=== PATIENT | male | born 1950 | race Caucasian/White ===

== ENCOUNTER 2016-08-20 10:40 | Observation (INO) | payer OTHER ==
[2016-08-20] VITALS (7 sets, daily range): BP systolic 150–157; BP diastolic 73–89; PULSE 57–80; TEMP 36.3–36.8; O2SAT 94–98; Ht 190.5 cm; Wt 132.4 kg
[~2016-08-20] VITALS: Ht 190.5 cm; Wt 132.4 kg
[~2016-08-20 10:40] MED LIST: ASPI81TA25 PO; ATOR-22 PO; DOXY1TAB6 PO; ESCI10TA17 PO; LORA-741 PO; LOSA50TA54 PO; METO25TA3 PO
[2016-08-20 11:41] LABS: BASO % 0.7 %; BASO ABS # 0.04 K/uL (0-0.2); COMPLETE YES; EOS % 1.4 %; HEMATOCRIT 45.1 % (42-52); IG% 0.2 %; LYMPH % 32.3 %; LYMPH ABS # 1.89 K/uL (1.2-3.4); MEAN CELL VOLUME 84.9 fL (80-100); MEAN CORPUSCULAR HEMOGLOBIN 30.9 pg (25-34); MEAN CORPUSCULAR HGB CONC 36.4 g/dl (32-36); MEAN PLATELET VOLUME 8.7 fL (7.4-10.4); MONO % 6.5 %; NEUT % 58.9 %; PLATELET COUNT 188 K/uL (130-400); RED BLOOD COUNT 5.31 M/uL (4.7-6.1); WHITE BLOOD COUNT 5.85 K/uL (4.8-10.8)
[2016-08-20 11:50] LABS: PROTHROMBIN TIME (PATIENT) 10.5 SECONDS (9.0-12.0)
--- NOTE | 2016-08-20 11:58 | DIAGNOSTIC IMAGING REPORT ---
CHEST ONE VIEW PORTABLE CLINICAL HISTORY: Shortness of breath. Evaluate for pneumonia. COMPARISON STUDY: Chest radiograph January 01, 2013. FINDINGS: No pneumothorax or pleural effusion is present. There is no evidence of pulmonary edema. Mild to moderate cardiomegaly is unchanged. No consolidation is identified. IMPRESSION: 1. No acute cardiopulmonary findings. 2. Stable cardiomegaly. Electronically signed by: Scar Shah M.D. 08/20/2016 11:56 AM Dictated Date/Time: 08/20/2016 11:44 AM
[2016-08-20 12:01] LABS: BUN/CREATININE RATIO 12.9 (10-20); CALCIUM 9.4 mg/dl (8.5-10.1); CREATININE 0.98 mg/dl (0.60-1.40); POTASSIUM 3.7 mmol/L (3.5-5.1)
--- NOTE | 2016-08-20 13:07 | DIAGNOSTIC IMAGING REPORT ---
RIGHT LOWER EXTREMITY VENOUS DOPPLER HISTORY: Short of breath. Right leg pain. COMPARISON STUDY: None. FINDINGS: There is normal compressibility, flow, and augmentation within the right lower extremity deep venous system. There is a 3.5 x 2.0 x 1.3 cm popliteal cyst. IMPRESSION: No DVT within the right lower extremity. Popliteal cyst. Electronically signed by: Federico Brennan M.D. 08/20/2016 1:05 PM Dictated Date/Time: 08/20/2016 1:04 PM
[2016-08-20] MEDS ORDERED: ALUMINUM/MAGNESIUM/SIMETH (MAALOX MAX) 30 ML UDC PO PRN (14:15)
[2016-08-20] MEDS ORDERED: ACETAMINOPHEN 325 MG TAB PO PRN (14:15)
[2016-08-20] MEDS ORDERED: NITROGLYCERIN 0.4 MG SL PER TAB CHARGE SL PRN (14:15)
[2016-08-20] MEDS ORDERED: ONDANSETRON INJ 2 MG/ML 2 ML VIAL IV PRN (14:15)
[2016-08-20] MEDS ORDERED: POLYETHYLENE (MIRALAX) 17 GM PACK PO PRN (14:15)
[2016-08-20] MEDS ORDERED: MAGNESIUM HYDROXIDE SUSP 30 ML UDC PO PRN (14:15)
[2016-08-20] MEDS ORDERED: IV FLUIDS COMPLETED PRN (15:15)
[2016-08-20] MEDS ORDERED: ASPIRIN 324 MG CHEW PO STA (15:48)
--- NOTE | 2016-08-20 16:52 | History and Physical ---
History & Physical Date & Time of Service: Aug 20, 2016 at 14:22 Chief Complaint: Short Of Breath Pain In Left Arm Primary Care Physician: Ralph Rolle M.D. History of Present Illness Source: patient, clinic records, hospital records Patient seen and examined. 65 year old male with PMHx of HTN, chart history of HLD presents to the ED complaining of shortness of breath beginning today. Patient reports when he wokeup this morning he would become SOB with minimal activity. He states he just didn't feel right. He reports that the SOB continued even at rest and he felt like he couldn't get enough air. He states that he had associated left arm pain as well with numbness in his fingers. He states he sometimes develops numbness in his lips as well. He also reports diaphoresis and nausea during the incident. He denies fevers, chills, URI symptoms, chest pain, palpitations, vomiting, diarrhea, dysuria, calf pain and edema. He does not think he was hyperventilating. He states symptoms began resolving spontaneously while in the ED. He reports a family history of Afib. In the ED VS were stable, Glenys, and DDimer were negative, EKG was nonischemic. Past Medical/Surgical History Medical Problems: (1) COPD (chronic obstructive pulmonary disease) Status: Chronic (2) Depression Status: Chronic (3) History of shingles Status: Chronic (4) History of ventricular ectopy Status: Chronic (5) Hyperlipidemia Status: Chronic (6) Hypertension Status: Chronic (7) TRIGGER FINGER Status: Resolved Surgical Problems: (1) H/O arthroscopic knee surgery Status: Chronic (2) H/O cardiac catheterization Permanent Comment: 2000 Status: Chronic (3) H/O esophagogastroduodenoscopy Status: Chronic (4) H/O sinus surgery Status: Chronic (5) H/O umbilical hernia repair Status: Chronic Family History FH: atrial fibrillation MOTHER Stroke MOTHER Social History Smoking Status: Former Smoker Alcohol Use: occasionally Marital Status: Housing status: lives with family Occupational Status: retired Immunizations History of Influenza Vaccine: N/A History of Tetanus Vaccine?: UP TO DATE History of Pneumococcal: No History of Hepatitis B Vaccine: Yes Multi-Drug Resistant Organisms History of MDRO: No Allergies Coded Allergies: Penicillins (Unverified Allergy, Mild, 08/20/16) Latex (Unverified Allergy, Unknown, 08/20/16) Clavulanic Acid (Unverified Adverse Reaction, Unknown, 08/20/16) Home Medications Scheduled Escitalopram (Lexapro), 10 MG PO DAILY Losartan Potassium (Cozaar), 25 MG PO DAILY Review of Systems See above for pertinent positives & negatives. A total of 10 systems reviewed and were otherwise negative. Physical Exam Vital Signs Date Time Temp Pulse Resp B/P Pulse Ox O2 Delivery O2 Flow Rate FiO2 08/20/16 13:51 77 08/20/16 13:45 95 22 137/79 94 Room Air 08/20/16 12:18 87 17 97 Room Air 08/20/16 11:30 Room Air 08/20/16 10:47 94 Room Air 08/20/16 10:47 36.6 104 19 162/87 94 Room Air General Appearance: + pertinent finding (Pleasant WD/WN 65 year old male lying in bed in NAD ) Head: normocephalic, atraumatic Eyes: PERRL, EOMI, sclerae normal ENT: hearing grossly normal, pharynx normal Neck: supple, no JVD, trachea midline Respiratory/Chest: chest non-tender, lungs clear, normal breath sounds, no respiratory distress, no accessory muscle use Cardiovascular: regular rate, rhythm, no edema, no gallop, no JVD, no murmur, normal peripheral pulses Abdomen/GI: normal bowel sounds, non tender, soft Back: normal inspection, no muscle spasm Extremities/Musculoskelatal: no calf tenderness, normal capillary refill, + pedal edema (1+) Neurologic/Psych: alert, oriented x 3, + pertinent finding (no motor or sensory deficits noted on gross exam ) Skin: normal color, warm/dry, no rash Lymphatic: no adenopathy Diagnostics Laboratory Results Results Past 24 Hours Test 08/20/16 11:25 08/20/16 11:35 Range/Units White Blood Count 5.85 4.8-10.8 K/uL Red Blood Count 5.31 4.7-6.1 M/uL Hemoglobin 16.4 14.0-18.0 g/dL Hematocrit 45.1 42-52 % Mean Corpuscular Volume 84.9 80-100 fL Mean Corpuscular Hemoglobin 30.9 25-34 pg Mean Corpuscular Hemoglobin Concent 36.4 32-36 g/dl Platelet Count 188 130-400 K/uL Mean Platelet Volume 8.7 7.4-10.4 fL Neutrophils (%) (Auto) 58.9 % Lymphocytes (%) (Auto) 32.3 % Monocytes (%) (Auto) 6.5 % Eosinophils (%) (Auto) 1.4 % Basophils (%) (Auto) 0.7 % Neutrophils # (Auto) 3.45 1.4-6.5 K/uL Lymphocytes # (Auto) 1.89 1.2-3.4 K/uL Monocytes # (Auto) 0.38 0.11-0.59 K/uL Eosinophils # (Auto) 0.08 0-0.5 K/uL Basophils # (Auto) 0.04 0-0.2 K/uL RDW Standard Deviation 37.9 36.4-46.3 fL RDW Coefficient of Variation 12.4 11.5-14.5 % Immature Granulocyte % (Auto) 0.2 % Immature Granulocyte # (Auto) 0.01 0.00-0.02 K/uL Prothrombin Time 10.5 9.0-12.0 SECONDS Prothromb Time International Ratio 1.0 0.9-1.1 Activated Partial Thromboplast Time 26.0 21.0-31.0 SECONDS Partial Thromboplastin Ratio 1.0 Sodium Level 142 136-145 mmol/L Potassium Level 3.7 3.5-5.1 mmol/L Chloride Level 107 98-107 mmol/L Carbon Dioxide Level 22 21-32 mmol/L Anion Gap 13.0 3-11 mmol/L Blood Urea Nitrogen 13 7-18 mg/dl Creatinine 0.98 0.60-1.40 mg/dl Est Creatinine Clear Calc Drug Dose 104.4 ml/min Estimated GFR () 94.7 Estimated GFR (Non- 81.7 BUN/Creatinine Ratio 12.9 10-20 Random Glucose 96 70-99 mg/dl Calcium Level 9.4 8.5-10.1 mg/dl Bedside D-Dimer 244 0-450 ng/mlFEU Bedside Troponin I 0.000 0-0.045 ng/ml Diagnostic Radiology RLE DOPPLER Per radiologist read: IMPRESSION: No DVT within the right lower extremity. Popliteal cyst. CXR Per radiologist read: EKG NSR 83 BPM, QTc 470, no acute ischemic changes noted Impression Assessment and Plan 65 year old male presents to the ED complaining of SOB, and left arm pain. SHORTNESS OF BREATH, LEFT ARM PAIN -Observation in tele -Glenys negative x 1, Ddimer negative, EKG nonischemic -Had negative stress test in 2013 -Risk factors:HTN, chart history of HLD, 30pack year tobacco history, age, obesity -Serial Glenys and EKGs -Fasting lipid panel in AM -Echo pending to r/o heart wall abnormality -ASA daily -Nitro, prn chest pain -stress test in AM -AHA diet -CBC, PRP, Mg daily -VSS stable, monitor in tele HTN -stable -continue Losartan HLD -per chart -check lipid profile DEPRESSION -continue Lexapro DVT PROPHYLAXIS: Sq lovenox CODE STATUS: FULL CODE DISPO:observation pending further workup Patient seen in collaboration with Dr. Vallejo Attending Note: Patient is a 65 Yr old male with PMH of HTN, HLD presents with an episode of SOB at rest, not feeling well, left arm pain associated with tingling/numbness in his left hand, diaphoresis and nausea this morning. Symptoms have currently resolved and he denies any history of chest pain or any other relevant history. Physical exam: Vitals signs as noted above General; Well built and nourished, No distress HEENT: NC/AT, EOMI, PERRLA CVS: S1, S2, no murmur Resp: Clear to ausculatatiuon, Normal breath sounds Abd: Soft, Non tender, BS present Neuro: no focal deficits Ext: 1+ pedal edema, no cyanosis, clubbing Skin: warm, intact Assessment and plan: SOB associated with left arm pain: Unclear etiology: ? Anxiety related Observe in Tele Trend troponin, Check ECHO Start Aspirin, check lipid panel EKG: no signs of ischemia Stress test in AM CXR: wnl, Negative d-dimer Agree with assessment and plan of Dana Bland PA-C as above VTE Prophylaxis VTE Risk Assessment Done? Y/N: Yes Risk Level: Moderate
--- NOTE | 2016-08-20 17:15 | EMERGENCY ROOM VISIT NOTE ---
History Report prepared by Donnell: Bekah Mittal Under the Supervision of: Dr. Mayco Morrow M.D. First contact with patient: 11:05 Chief Complaint: SHORTNESS OF BREATH Stated Complaint: SHORT OF BREATH PAIN IN LEFT ARM Nursing Triage Summary: Patient c/o SOB since he woke up this morning and pain in bicep in my left arm and my left hand is getting numb. I feel "wrung out, I don't feel very good". Nausea History of Present Illness The patient is a 65 year old male who presents to the Emergency Room with complaints of noticeably increased shortness of breath after getting up from bed this morning. Currently, while resting, he denies being in significant discomfort, but he states that his symptoms seem to be exacerbated with attempts of exertion. At the time of onset, the patient had just woken up and walked down his stairs when he suddenly became short of breath, and developed squeezing pains in his upper left arm, as well as tingling to his left hand for about 10 minutes. During this episode, the patient also felt nauseous and generally "unwell", however, he denies experiencing any tightness, pain or discomfort to his chest or back, and he did not become diaphoretic. Over the past few days, the patient notes that he has had intermittent pains to the back of his right knee, but he has not noticed any swelling or discoloration of the area, and he is been able to move it normally without increased pain. He does state that he normally has swelling to his bilateral ankles, but it is not above baseline today. Patient states that he occasionally feels numbness to his lips, but he did not experience that sensation today. He denies recent fevers, chills, cough, abdominal pain, vomiting, diarrhea or black/bloody stool. Patient does have a history of hypertension, which he is medicated for, but he denies history of IL or CAD. He did have a stress test a few years ago after experiencing chest pain, but he states that the results were insignificant for abnormalities. Source of History: patient Onset: this morning Position: chest Symptom Intensity: No significant discomfort Quality: other (shortness of breath) Timing: other (increased) Modifying Factors (Worsening): exertion Modifying Factors (Relieving): rest Associated Symptoms: + nausea, No abdominal pain, No chest pain, No diaphoresis, No fevers, No vomiting Note: Patient has pain to the back of his right knee. He denies increased swelling to his LE above baseline. Patient had squeezing pains to his left upper arm and numbness to his left hand. Review of Systems See HPI for pertinent positives & negatives. A total of 10 systems reviewed and were otherwise negative. Past Medical & Surgical Medical Problems: (1) COPD (chronic obstructive pulmonary disease) (2) Depression (3) History of shingles (4) History of ventricular ectopy (5) Hyperlipidemia (6) Hypertension (7) Shortness of breath (8) TRIGGER FINGER Surgical Problems: (1) H/O arthroscopic knee surgery (2) H/O cardiac catheterization (3) H/O esophagogastroduodenoscopy (4) H/O sinus surgery (5) H/O umbilical hernia repair Social History Smoking Status: Former Smoker Marital Status: Housing Status: lives with significant other Occupation Status: employed Current/Historical Medications Scheduled Escitalopram (Lexapro), 10 MG PO DAILY Losartan Potassium (Cozaar), 25 MG PO DAILY Allergies Coded Allergies: Penicillins (Unverified Allergy, Mild, 08/20/16) Latex (Unverified Allergy, Unknown, 08/20/16) Clavulanic Acid (Unverified Adverse Reaction, Unknown, 08/20/16) Physical Exam Vital Signs Date Time Temp Pulse Resp B/P Pulse Ox O2 Delivery O2 Flow Rate FiO2 08/20/16 16:20 81 20 118/68 95 Room Air 08/20/16 14:30 94 Room Air 08/20/16 13:51 77 08/20/16 13:45 95 22 137/79 94 Room Air 08/20/16 12:18 87 17 97 Room Air 08/20/16 11:30 Room Air 08/20/16 10:47 94 Room Air 08/20/16 10:47 36.6 104 19 162/87 94 Room Air Physical Exam Constitutional: Vital signs reviewed. Eyes: Pupils are equal round reactive to light. Conjunctiva are noninjected. ENT: Pharynx is clear without erythema or exudate. Mucous membranes are moist. Neck supple without meningeal signs. Respiratory: Clear to auscultation bilaterally. Breath sounds are equal bilaterally. Cardiovascular: Regular rate and rhythm. No rubs or gallops. GI: Soft, nondistended and nontender. Bowel sounds are present. Musculoskeletal: No peripheral edema. No lower extremity tenderness. Integumentary: No cyanosis. Neurological: The patient is awake and alert. No focal deficits. Psychiatric: Normal affect. Medical Decision & Procedures ER Provider Diagnostic Interpretation: X-ray results as stated below per interpretation by me and the radiologist: US results as stated below per my review and radiologist interpretation. CHEST ONE VIEW PORTABLE CLINICAL HISTORY: Shortness of breath. Evaluate for pneumonia. COMPARISON STUDY: Chest radiograph January 01, 2013. FINDINGS: No pneumothorax or pleural effusion is present. There is no evidence of pulmonary edema. Mild to moderate cardiomegaly is unchanged. No consolidation is identified. IMPRESSION: 1. No acute cardiopulmonary findings. 2. Stable cardiomegaly. Electronically signed by: Scar Shah M.D. 08/20/2016 11:56 AM Dictated Date/Time: 08/20/2016 11:44 AM RIGHT LOWER EXTREMITY VENOUS DOPPLER HISTORY: Short of breath. Right leg pain. COMPARISON STUDY: None. FINDINGS: There is normal compressibility, flow, and augmentation within the right lower extremity deep venous system. There is a 3.5 x 2.0 x 1.3 cm popliteal cyst. IMPRESSION: No DVT within the right lower extremity. Popliteal cyst. Electronically signed by: Federico Brennan M.D. 08/20/2016 1:05 PM Dictated Date/Time: 08/20/2016 1:04 PM Laboratory Results 08/20/16 11:25 Red Blood Count 5.31, Mean Corpuscular Volume 84.9, Mean Corpuscular Hemoglobin 30.9, Mean Corpuscular Hemoglobin Concent 36.4, Mean Platelet Volume 8.7, Neutrophils (%) (Auto) 58.9, Lymphocytes (%) (Auto) 32.3, Monocytes (%) (Auto) 6.5, Eosinophils (%) (Auto) 1.4, Basophils (%) (Auto) 0.7, Neutrophils # (Auto) 3.45, Lymphocytes # (Auto) 1.89, Monocytes # (Auto) 0.38, Eosinophils # (Auto) 0.08, Basophils # (Auto) 0.04 08/20/16 11:25 Test 08/20/16 11:25 08/20/16 11:35 White Blood Count 5.85 K/uL (4.8-10.8) Red Blood Count 5.31 M/uL (4.7-6.1) Hemoglobin 16.4 g/dL (14.0-18.0) Hematocrit 45.1 % (42-52) Mean Corpuscular Volume 84.9 fL (80-100) Mean Corpuscular Hemoglobin 30.9 pg (25-34) Mean Corpuscular Hemoglobin Concent 36.4 g/dl (32-36) Platelet Count 188 K/uL (130-400) Mean Platelet Volume 8.7 fL (7.4-10.4) Neutrophils (%) (Auto) 58.9 % Lymphocytes (%) (Auto) 32.3 % Monocytes (%) (Auto) 6.5 % Eosinophils (%) (Auto) 1.4 % Basophils (%) (Auto) 0.7 % Neutrophils # (Auto) 3.45 K/uL (1.4-6.5) Lymphocytes # (Auto) 1.89 K/uL (1.2-3.4) Monocytes # (Auto) 0.38 K/uL (0.11-0.59) Eosinophils # (Auto) 0.08 K/uL (0-0.5) Basophils # (Auto) 0.04 K/uL (0-0.2) RDW Standard Deviation 37.9 fL (36.4-46.3) RDW Coefficient of Variation 12.4 % (11.5-14.5) Immature Granulocyte % (Auto) 0.2 % Immature Granulocyte # (Auto) 0.01 K/uL (0.00-0.02) Prothrombin Time 10.5 SECONDS (9.0-12.0) Prothromb Time International Ratio 1.0 (0.9-1.1) Activated Partial Thromboplast Time 26.0 SECONDS (21.0-31.0) Partial Thromboplastin Ratio 1.0 Anion Gap 13.0 mmol/L (3-11) Est Creatinine Clear Calc Drug Dose 104.4 ml/min Estimated GFR () 94.7 Estimated GFR (Non- 81.7 BUN/Creatinine Ratio 12.9 (10-20) Calcium Level 9.4 mg/dl (8.5-10.1) Magnesium Level 2.2 mg/dl (1.8-2.4) Bedside D-Dimer 244 ng/mlFEU (0-450) Bedside Troponin I 0.000 ng/ml (0-0.045) Laboratory results as reviewed by me. ECG Indication: SOB/dyspnea Rate (beats per minute): 83 Rhythm: normal sinus Findings: nonspecific-ST abn, no ectopy Change: Similar ST change when compared to December and January of 2013. Repeat EKG showed sinus rhythm at 67 BPM with PACs. There is no acute ischemic change. ED Course 1108: The patient was evaluated in room C2. A complete history and physical exam was performed. 1210: Upon reevaluation, the patient stated that he was feeling bloated, but he did not have any abdominal tenderness. He did note that his left fingers were currently tingling, but he was not experiencing the squeezing pains to his left upper arm like he was before. He also denies chest pain or shortness of breath at this time. A repeat EKG will be taken. 1238: Patient was reevaluated at this time and stated that his indigestion had resolved. The results of his US are pending. 1330: Upon reevaluation, the patient was doing well and was asymptomatic. I updated him on the results of his radiology reports and lab tests. The hospitalist will be contacted. 1335: After discussion with Dot Reagan PA-C, the patient will continue to be evaluated by the [facility] hospitalist for further management. The patient verbalized his understanding and agreement with this treatment plan. Medical Decision This is a 65-year-old male presents with exertional dyspnea and arm pain. Differential diagnosis includes DVT, pulmonary embolism, anginal equivalent, Acute coronary syndrome, anxiety. I did perform a limited focused review of portions of the patient's old chart on the electronic medical record. The patient has had no recent pertinent visits to this hospital. I did evaluate the patient as noted above. IV access was established. The patient was placed on a continuous nurse monitoring. I did order and personally review the patient's 12-lead EKG and chest x-ray as described above. His 12- lead EKG shows some nonspecific ST changes but seems unchanged from his priors. I did order and review the patient's blood work as noted in the electronic medical record. D-dimer and troponin are negative. I did order a Doppler ultrasound of the right leg. I did review the images myself as well as the radiology report as described above. There is no evidence of DVT. He does have a Soto's cyst. I did reevaluate the patient. He did have indigestion while in the emergency department. A repeat twelve-lead EKG was performed and did not show any acute ischemic changes per my interpretation. His ingestion did relieve spontaneously. I did discuss the test results with the patient. I did recommend hospitalization for further evaluation of his symptoms and repeat cardiac enzymes. I was concerned about an anginal equivalent. I did discuss the case with the hospital stay and nurse outreach case manager. Consults Time Called: 1330 Consulting Physician: Dot Moreno Returned Call: [phone] Discussed the patient's case. He will continue to be evaluated by the [facility] hospitalist for further management. Impression Primary Impression: Dyspnea Additional Impression: Bakers cyst Scribe Attestation The scribe's documentation has been prepared under my direct and personally reviewed by me in its entirety. I confirm that the note above accurately reflects all work, treatment, procedures, and medical decision making performed by me. Departure Information Dispostion Being Evaluated By Hospitalist ([facility]) Referrals Ralph Rolle M.D. (PCP) Problem Qualifiers Primary Impression: Dyspnea Dyspnea type: dyspnea on exertion Qualified Codes: R06.09 - Other forms of dyspnea Additional Impression: Bakers cyst Laterality: right Qualified Codes: M71.21 - Synovial cyst of popliteal space [Soto], right knee
[2016-08-20 18:42] LABS: CKMB/CK RATIO 1.1 (0-3.0)
[2016-08-20] MEDS ORDERED: ENOXAPARIN 40 MG/0.4 ML SYR SC SCH (21:00)
[2016-08-20 23:53] LABS: CKMB/CK RATIO 1.3 (0-3.0)
[2016-08-21] VITALS (8 sets, daily range): BP systolic 126–177; BP diastolic 80–107; PULSE 58–94; TEMP 36.4–36.8; O2SAT 93–98
[2016-08-21 06:32] LABS: HEMATOCRIT 44.2 % (42-52); MEAN CELL VOLUME 87.9 fL (80-100); MEAN CORPUSCULAR HEMOGLOBIN 31.2 pg (25-34); MEAN CORPUSCULAR HGB CONC 35.5 g/dl (32-36); MEAN PLATELET VOLUME 8.6 fL (7.4-10.4); PLATELET COUNT 164 K/uL (130-400); RED BLOOD COUNT 5.03 M/uL (4.7-6.1); WHITE BLOOD COUNT 5.14 K/uL (4.8-10.8)
[2016-08-21 07:14] LABS: BUN/CREATININE RATIO 15.1 (10-20); CALCIUM 8.8 mg/dl (8.5-10.1); CHOLESTEROL/HDL RATIO 4.3; CREATININE 0.9 mg/dl (0.60-1.40); MAGNESIUM 2.3 mg/dl (1.8-2.4); POTASSIUM 4.5 mmol/L (3.5-5.1)
[2016-08-21] MEDS ORDERED: ASPIRIN 81 MG ECTAB PO SCH (09:00)
[2016-08-21] MEDS ORDERED: ESCITALOPRAM OXALATE 10 MG TAB PO SCH (09:00)
[2016-08-21] MEDS ORDERED: LOSARTAN POTASSIUM 25 MG TAB PO SCH (09:00)
[2016-08-21] MEDS ORDERED: PERFLUTREN LIPID MICROSPHERE (DEFINITY) IV ONE (09:36)
--- NOTE | 2016-08-21 10:13 | Progress Note ---
Medicine Progress Note Date & Time of Visit: Aug 21, 2016 at 10:05. (Dana Bland PA-C) Subjective Patient seen and examined. Reports no more shortness of breath, left arm pain since arrival. Feels well and back to baseline. Understands he will have a stress test today and all questions were answered. Denies fevers, chills, chest pain, SOB, palpitations, nausea, vomiting, diarrhea, dysuria, calf pain and edema. Is npo until stress test (Dana Bland PA-C) Objective Last 8 Hrs Date Time Temp Pulse Resp B/P Pulse Ox O2 Delivery O2 Flow Rate FiO2 08/21/16 08:00 93 Room Air 08/21/16 07:37 36.8 79 20 177/107 94 77 160/92 08/21/16 07:35 36.4 62 18 167/95 95 Room Air 08/21/16 04:00 Room Air 08/21/16 03:57 36.6 58 17 151/85 95 Room Air Physical Exam: General-Pleasant WD/WN 65 year old male lying in bed in NAD Eyes-PERRLA, EOMI ENT-hearing grossly normal, mucosa moist Neck-supple, no JVD, trachea midline Lungs-CTA BL, no accessory muscle use Heart-RRR, no murmurs gallops or rubs Abdomen-normoactive, soft, NT Extremities-distal pulses intact, trace edema, no calf pain Neuro-A&Ox3, no focal deficits Laboratory Results: Last 24 Hours Test 08/20/16 11:25 08/20/16 11:35 08/20/16 17:53 08/20/16 23:24 White Blood Count 5.85 K/uL Red Blood Count 5.31 M/uL Hemoglobin 16.4 g/dL Hematocrit 45.1 % Mean Corpuscular Volume 84.9 fL Mean Corpuscular Hemoglobin 30.9 pg Mean Corpuscular Hemoglobin Concent 36.4 g/dl Platelet Count 188 K/uL Mean Platelet Volume 8.7 fL Neutrophils (%) (Auto) 58.9 % Lymphocytes (%) (Auto) 32.3 % Monocytes (%) (Auto) 6.5 % Eosinophils (%) (Auto) 1.4 % Basophils (%) (Auto) 0.7 % Neutrophils # (Auto) 3.45 K/uL Lymphocytes # (Auto) 1.89 K/uL Monocytes # (Auto) 0.38 K/uL Eosinophils # (Auto) 0.08 K/uL Basophils # (Auto) 0.04 K/uL RDW Standard Deviation 37.9 fL RDW Coefficient of Variation 12.4 % Immature Granulocyte % (Auto) 0.2 % Immature Granulocyte # (Auto) 0.01 K/uL Prothrombin Time 10.5 SECONDS Prothromb Time International Ratio 1.0 Activated Partial Thromboplast Time 26.0 SECONDS Partial Thromboplastin Ratio 1.0 Sodium Level 142 mmol/L Potassium Level 3.7 mmol/L Chloride Level 107 mmol/L Carbon Dioxide Level 22 mmol/L Anion Gap 13.0 mmol/L Blood Urea Nitrogen 13 mg/dl Creatinine 0.98 mg/dl Est Creatinine Clear Calc Drug Dose 104.4 ml/min Estimated GFR () 94.7 Estimated GFR (Non- 81.7 BUN/Creatinine Ratio 12.9 Random Glucose 96 mg/dl Calcium Level 9.4 mg/dl Magnesium Level 2.2 mg/dl Bedside D-Dimer 244 ng/mlFEU Bedside Troponin I 0.000 ng/ml Total Creatine Kinase 85 U/L 82 U/L Creatine Kinase MB 0.9 ng/ml 1.1 ng/ml Creatine Kinase MB Ratio 1.1 1.3 Troponin I < 0.015 ng/ml < 0.015 ng/ml Test 08/21/16 06:20 White Blood Count 5.14 K/uL Red Blood Count 5.03 M/uL Hemoglobin 15.7 g/dL Hematocrit 44.2 % Mean Corpuscular Volume 87.9 fL Mean Corpuscular Hemoglobin 31.2 pg Mean Corpuscular Hemoglobin Concent 35.5 g/dl RDW Standard Deviation 40.5 fL RDW Coefficient of Variation 12.7 % Platelet Count 164 K/uL Mean Platelet Volume 8.6 fL Sodium Level 143 mmol/L Potassium Level 4.5 mmol/L Chloride Level 108 mmol/L Carbon Dioxide Level 29 mmol/L Anion Gap 6.0 mmol/L Blood Urea Nitrogen 14 mg/dl Creatinine 0.90 mg/dl Est Creatinine Clear Calc Drug Dose 123.2 ml/min Estimated GFR () 105.0 Estimated GFR (Non- 90.6 BUN/Creatinine Ratio 15.1 Random Glucose 99 mg/dl Calcium Level 8.8 mg/dl Magnesium Level 2.3 mg/dl Triglycerides Level 125 mg/dl Cholesterol Level 210 mg/dl HDL Cholesterol 49 mg/dl LDL Cholesterol, Calculated 136 mg/dl VLDL Cholesterol, Calculated 25 mg/dl Cholesterol/HDL Ratio 4.3 (Dana Bland, PA-C) Assessment & Plan SHORTNESS OF BREATH, LEFT ARM PAIN -Glenys negative x 3, Ddimer negative, EKG nonischemic -no additional symptoms inpatient -Had negative stress test in 2013 -Risk factors:HTN, chart history of HLD, 30pack year tobacco history, age, obesity -continue aspirin daily -Stress test pending -likely discharge home following stress test HTN -stable -continue Losartan HLD -per chart -Triglycerides 125, Total cholesterol 210, LDL 136, HDL 49 DEPRESSION -continue Lexapro DVT PROPHYLAXIS: Sq Lovenox CODE STATUS: FULL CODE DISPO:likely discharge home with PCP followup if stress test is negative Current Inpatient Medications: Current Inpatient Medications Medications (Trade) Dose Ordered Sig/Kirit Route Start Time Stop Time Status Last Admin Dose Admin Enoxaparin Sodium (Lovenox Inj) 40 mg QPM SC 08/20/16 21:00 09/19/16 20:59 Acetaminophen (Tylenol Tab) 650 mg Q4H PRN PO 08/20/16 14:15 09/19/16 14:14 Al Hydrox/Mg Hydrox/Simethicone (Maalox Max Susp) 15 ml Q4H PRN PO 08/20/16 14:15 09/19/16 14:14 Magnesium Hydroxide (Milk Of Magnesia Susp) 30 ml Q12H PRN PO 08/20/16 14:15 09/19/16 14:14 Ondansetron HCl (Zofran Inj) 4 mg Q6H PRN IV 08/20/16 14:15 09/19/16 14:14 Nitroglycerin (Nitrostat Tab) 0.4 mg UD PRN SL 08/20/16 14:15 09/19/16 14:14 Polyethylene (Miralax Powder Packet) 17 gm DAILY PRN PO 08/20/16 14:15 09/19/16 14:14 Escitalopram Oxalate (Lexapro Tab) 10 mg DAILY PO 08/21/16 09:00 09/20/16 08:59 08/21/16 07:33 10 MG Losartan Potassium (coZAAR TAB) 25 mg DAILY PO 08/21/16 09:00 09/20/16 08:59 08/21/16 07:32 25 MG Miscellaneous (Iv Fluids Completed) 1 ea PRN PRN N/A 08/20/16 15:15 08/20/17 15:14 Aspirin (Ecotrin Tab) 81 mg QAM PO 08/21/16 09:00 09/20/16 08:59 08/21/16 07:32 81 MG (Dana Bland, CRISTINA) ATTENDING ADDENDUM care coordinated with DENICE Bland please refer to her notes for full details, I agree with her notes patient seen and examined, records reviewed by myself as well on exam, patient seen s/p stress test ambulating with no problems denies chest pain no other symptoms states he is ready and would like to be discharged VS noted and reviewed oriented x3, not in distress, speaks in sentences with no effort nor accessory muscle use normal rate, regular rhythm, no murmurs clear breath sounds bilaterally non distended, soft, nontender no bipedal edema, erythema, warmth no neuro deficits WBC 5.15 Crea 0.9 ASSESSMENT/PLAN> ACUTE CORONARY SYNDROME RULED OUT stress echo reviewed HYPERTENSION increase Losartan to 50mg daily ff up with PCP other diagnoses and plan of care as per DENICE Bland's notes Hudson Pinon MD (Hudson Pinon MD)
--- NOTE | 2016-08-21 10:46 | EXERCISE STRESS ECHO ---
*NOTICE TO RECEIVING [employer] This information is strictly Confidential and protected under [place] law. [place] law prohibits you from making any further disclosure of this information unless further disclosure is expressly permitted by the written consent of the person to whom it pertains or is authorized by law. A general authorization for the release of medical or other information is not sufficient for this purpose. Hospital accepts no responsibility if the information is made available to any other person, INCLUDING THE PATIENT. Interpretation Summary * Name: MAN RAY Study Date: 08/21/2016 08:17 AM BP: 138/71 mmHg * Patient Location: 219 HR: 71 * : 1950 (M/d/yyyy) Gender: Male Height: 75 in * Age: 65 yrs Ethnicity: [place] Weight: 248 lb * Ordering Physician: Dana Luna * Referring Physician: DANA LUNA * Performed By: Rebekah Wiggins RDCS * * Reason For Study: CHEST PAIN * BSA: 2.4 m2 * History: CHEST PAIN * -- Conclusions -- * Ultrasound contrast was administered to improve delineation of the endocardial border with good technical results for the images obtained from the apical imaging position. The post stress images obtained from the parasternal position were non diagnostic. * The apical images however were sufficient for the stress test. * STRESS STUDY: * Normal exercise stress echocardiogram. * No echocardiographic or ECG evidence of myocardial ischemia having achieved heart rate adequate for diagnostic purposes. * The pateint exercised to a moderately high workload with no symptoms suggestive of ischemia reported. * The test was terminated due to fatigue. * No chest pain or arm pain was reported. * The heart rate response to exercise was appropriate. * The blood pressure response was borderline exagerated. * RESTING STUDY: * Left ventricular systolic function is normal. * The LV Ejection Fraction = 60-65% * There is no significant valvular heart disease. * Doppler findings do not suggest pulmonary hypertension. Procedure Details * ECHOEX, CPT #43190 * ECHO DOPPLER, CPT #[id number] * ECHO COLOR FLOW, CPT #[id number] * A contrast injection of Definity was performed to improve assessment of LV function. * Contrast was injected into an intravenous site in the right arm. * One vial of Definity ultrasound contrast was diluted in normal saline to a total volume of 10 ml. A total of '5.5' ml of solution was administered during imaging. * Lot # [id number] of Definity utilized for procedure. * Expiration date JAN 18. * The attending nurse who injected the contrast agent was MANISH WOOTEN RN. Left Ventricle * The left ventricle is normal in size. * There is normal left ventricular wall thickness. * Left ventricular systolic function is normal. * Ejection Fraction = 60-65%. * Resting wall motion: Normal. Stress wall motion: Appropriate increase in Left ventricular systolic function and decrease in cavity size. No stress induced segmental wall motion abnormalities. Right Ventricle * The right ventricle is normal in size and function. Atria * The left atrial size is normal. * Right atrial size is normal. * No ASD detected; PFO is not assessed. Mitral Valve * The mitral valve is normal. * There is no mitral valve stenosis. * Significant mitral regurgitation is absent. Tricuspid Valve * The tricuspid valve is normal. * There is no tricuspid stenosis. * Significant tricuspid regurgitation is absent. * Doppler findings do not suggest pulmonary hypertension. Aortic Valve * The aortic valve is trileaflet. * No hemodynamically significant valvular aortic stenosis. * No aortic regurgitation is present. Pulmonic Valve * The pulmonic valve is not well visualized. Great Vessels * The aortic root is normal size. Pericardium * There is no pericardial effusion. * There is an anterior echodensity adjacent to the pericardial space consistent with pericardial fat. Stress Parameters * Normal baseline electrocardiogram. * The stress ECKG was negative for ischemia. Occasional PVCs were noted. * The stress portion of this study was personally supervised by the undersigned interpreting physician. * Rest heart rate was '71' BPM. * Rest blood pressure was '138/71' * Maximum heart rate achieved was 160 bpm. * Maximum heart rate was 101 % of maximum age-predicted heart rate. * Maximum blood pressure was '198/72' * Total exercise time was '8:19' * Maximum exercise MET level achieved was '10.10' METS * Maximum treadmill speed was '3.40' miles per hour. * Maximum treadmill elevation was '14.00'% grade. * Exercise was terminated due to 'ACHIEVING TARGET HR' Left Ventricular Diastolic Function * Grade I diastolic dysfunction, (abnormal relaxation pattern). MMode 2D Measurements and Calculations LVAd ap4 37.4 cm\S\2 LVLd ap4 9.7 cm EDV(MOD-sp4) 116.1 ml EDV(sp4-el) 123.0 ml LVAs ap4 20.9 cm\S\2 LVLs ap4 7.9 cm ESV(MOD-sp4) 47.4 ml ESV(sp4-el) 46.8 ml EF(MOD-sp4) 59.2 % EF(sp4-el) 62.0 % LVAd ap2 36.1 cm\S\2 LVLd ap2 9.1 cm EDV(MOD-sp2) 117.0 ml EDV(sp2-el) 122.0 ml LVAs ap2 20.7 cm\S\2 LVLs ap2 6.9 cm ESV(MOD-sp2) 55.2 ml ESV(sp2-el) 52.6 ml EF(MOD-sp2) 52.9 % EF(sp2-el) 56.9 % LVLd %diff -6.18 % EDV(MOD-bp) 121.2 ml LVLs %diff -14.42 % ESV(MOD-bp) 55.0 ml EF(MOD-bp) 54.7 % SV(MOD-sp4) 68.7 ml SI(MOD-sp4) 28.6 ml/m\S\2 SV(MOD-sp2) 61.9 ml SI(MOD-sp2) 25.7 ml/m\S\2 SV(MOD-bp) 66.3 ml SI(MOD-bp) 27.6 ml/m\S\2 SV(sp4-el) 76.2 ml SI(sp4-el) 31.7 ml/m\S\2 SV(sp2-el) 69.4 ml SI(sp2-el) 28.9 ml/m\S\2 Doppler Measurements and Calculations MV E max vicki 56.3 cm/sec MV A max vicki 61.6 cm/sec MV E/A 0.91 MV dec time 0.26 sec Ao V2 max 130.3 cm/sec Ao max PG 6.8 mmHg Ao max PG (full) 1.4 mmHg LV V1 max PG 5.4 mmHg LV V1 max 115.9 cm/sec
[2016-08-21] MEDS ORDERED: CZR50 PO (16:03)
--- NOTE | 2016-08-21 16:06 | Discharge Instructions ---
Discharge Instructions Admission Reason for Admission: Shortness Of Breath (Dana Bland PA-C) Discharge Discharge Diagnosis / Problem: Chest pain (Dana Bland PA-C) Discharge Goals Goal(s): Improve function (Dana Bland PA-C) Activity Recommendations Activity Limitations: as noted below Shower/Bathe: no limitations Driving or Machine Use: resume 1 day after discharge No heavy exertion until evaluated by your primary care doctor. . (Dana Bland PA-C) Instructions / Follow-Up Instructions / Follow-Up Please take your medications as directed. We increased your Losartan back to the 50mg a new prescription was sent to your pharmacy Follow up with Dr. Rolle on Aug 23 at 10:50 AM Please call your primary care doctor or return to ER if you have recurrence of symptoms. Please take care of yourself. It was a pleasure taking care of you. Dana Bland PA-C (Dana Bland PA-C) Current Hospital Diet Patient's current hospital diet: AHA Diet (Heart Healthy) (Dana Bland PA-C) Discharge Diet Recommended Diet: AHA Diet (Heart Healthy) (Dana Bland PA-C) Procedures Procedures Performed: Stress Echocardiogram (Dana Bland PA-C) Pending Studies Studies pending at discharge: no (Dana Bland PA-C) Laboratory Results Lipid Panel Test 08/21/16 06:20 Range/Units Triglycerides Level 125 0-150 mg/dl Cholesterol Level 210 H 0-200 mg/dl HDL Cholesterol 49 mg/dl Cholesterol/HDL Ratio 4.3 LDL Cholesterol, Calculated 136 mg/dl (Dana Bland PA-C) Medical Emergencies . Who to Call and When: Medical Emergencies: If at any time you feel your situation is an emergency, please call 911 immediately. . (Dana Bland PA-C) Non-Emergent Contact Non-Emergency issues call your: Primary Care Provider . (Dana Bland PA-C) . "Provider Documentation" section prepared by Dana Bland. (Dana Bland PA-C) VTE Core Measure Inpt VTE Proph given/why not?: Enoxaparin (Lovenox)SQ (Dana Bland PA-C)
--- NOTE | 2016-08-21 17:54 | Discharge Summary ---
Discharge Summary Admission Date: Aug 20, 2016 at 16:46 Discharge Date: Aug 21, 2016 Discharge Disposition: Home Principal Diagnosis: Chest Pain, Shortness of Breath: Acute Coronary Syndrome ruled out Hypertensin Depression Procedures: s/p EXERCISE STRESS TEST 08/20/16 STRESS STUDY: * Normal exercise stress echocardiogram. * No echocardiographic or ECG evidence of myocardial ischemia having achieved heart rate adequate for diagnostic purposes. * The pateint exercised to a moderately high workload with no symptoms suggestive of ischemia reported. * The test was terminated due to fatigue. * No chest pain or arm pain was reported. * The heart rate response to exercise was appropriate. * The blood pressure response was borderline exagerated. * RESTING STUDY: * Left ventricular systolic function is normal. * The LV Ejection Fraction = 60-65% * There is no significant valvular heart disease. * Doppler findings do not suggest pulmonary hypertension. Pending Studies/Follow-Up: Please monitor BP (re: Losartan increased) Medication Reconciliation New Medications: Losartan Potassium (Losartan Potassium) 50 Mg Tab 1 TAB PO DAILY for 30 Days, #30 TABS 2 Refills Continued Medications: Escitalopram (Lexapro) 10 Mg Tab 10 MG PO DAILY Discontinued Medications: Losartan Potassium (Cozaar) 50 Mg Tab 25 MG PO DAILY, TAB Admission Information HPI (per Admitting provider): Patient seen and examined. 65 year old male with PMHx of HTN, chart history of HLD presents to the ED complaining of shortness of breath beginning today. Patient reports when he wokeup this morning he would become SOB with minimal activity. He states he just didn't feel right. He reports that the SOB continued even at rest and he felt like he couldn't get enough air. He states that he had associated left arm pain as well with numbness in his fingers. He states he sometimes develops numbness in his lips as well. He also reports diaphoresis and nausea during the incident. He denies fevers, chills, URI symptoms, chest pain, palpitations, vomiting, diarrhea, dysuria, calf pain and edema. He does not think he was hyperventilating. He states symptoms began resolving spontaneously while in the ED. He reports a family history of Afib. In the ED VS were stable, Glenys, and DDimer were negative, EKG was nonischemic. Physical Exam (per Admitting): General Appearance: + pertinent finding (Pleasant WD/WN 65 year old male lying in bed in NAD ) Head: normocephalic, atraumatic Eyes: PERRL, EOMI, sclerae normal ENT: hearing grossly normal, pharynx normal Neck: supple, no JVD, trachea midline Respiratory/Chest: chest non-tender, lungs clear, normal breath sounds, no respiratory distress, no accessory muscle use Cardiovascular: regular rate, rhythm, no edema, no gallop, no JVD, no murmur , normal peripheral pulses Abdomen/GI: normal bowel sounds, non tender, soft Back: normal inspection, no muscle spasm Extremities/Musculoskelatal: no calf tenderness, normal capillary refill, + pedal edema (1+) Neurologic/Psych: alert, oriented x 3, + pertinent finding (no motor or sensory deficits noted on gross exam ) Skin: normal color, warm/dry, no rash Lymphatic: no adenopathy Hospital Course 65 year old male with PMHx of HTN, Depression and remote tobacco abuse, present to the ED complaining of shortness of breath and pain to the left arm/shoulder that began prior to arrival. In the ED VS were stable, cardiac enzymes and DDimer were negative, EKG was nonischemic and CXR was unremarkable. Patient was admitted under observation to r/o ACS due to his risk factors. Hospital stay was uncomplicated and cardiac enzymes were negative x 3, EKGs nonischemic x 2. Patient underwent a stress echocardiogram which was negative for inducible ischemia. However during the exam patient's blood pressure increased. Patient was instructed to increase his Losartan to 50mg daily upon discharge and was given a new prescription. Patient was deemed medically stable for discharge on 08/21/15 and discharged home with PCP followup. Stress Echo * History: CHEST PAIN * -- Conclusions -- * Ultrasound contrast was administered to improve delineation of the endocardial border with good technical results for the images obtained from the apical imaging position. The post stress images obtained from the parasternal position were non diagnostic. * The apical images however were sufficient for the stress test. * STRESS STUDY: * Normal exercise stress echocardiogram. * No echocardiographic or ECG evidence of myocardial ischemia having achieved heart rate adequate for diagnostic purposes. * The pateint exercised to a moderately high workload with no symptoms suggestive of ischemia reported. * The test was terminated due to fatigue. * No chest pain or arm pain was reported. * The heart rate response to exercise was appropriate. * The blood pressure response was borderline exagerated. * RESTING STUDY: * Left ventricular systolic function is normal. * The LV Ejection Fraction = 60-65% * There is no significant valvular heart disease. * Doppler findings do not suggest pulmonary hypertension. Total time spent on discharge = 30 minutes This includes examination of the patient, discharge planning, medication reconciliation, and communication with other providers. Discharge Instructions Discharge Instructions Admission Reason for Admission: Shortness Of Breath Discharge Discharge Diagnosis / Problem: Chest pain Discharge Goals Goal(s): Improve function Activity Recommendations Activity Limitations: as noted below Shower/Bathe: no limitations Driving or Machine Use: resume 1 day after discharge No heavy exertion until evaluated by your primary care doctor. . Instructions / Follow-Up Instructions / Follow-Up Please take your medications as directed. We increased your Losartan back to the 50mg a new prescription was sent to your pharmacy Follow up with Dr. Rolle on Aug 23 at 10:50 AM Please call your primary care doctor or return to ER if you have recurrence of symptoms. Please take care of yourself. It was a pleasure taking care of you. Dana Bland PA-C Current Hospital Diet Patient's current hospital diet: AHA Diet (Heart Healthy) Discharge Diet Recommended Diet: AHA Diet (Heart Healthy) Procedures Procedures Performed: Stress Echocardiogram Pending Studies Studies pending at discharge: no Laboratory Results Lipid Panel Test 08/21/16 06:20 Range/Units Triglycerides Level 125 0-150 mg/dl Cholesterol Level 210 H 0-200 mg/dl HDL Cholesterol 49 mg/dl Cholesterol/HDL Ratio 4.3 LDL Cholesterol, Calculated 136 mg/dl Medical Emergencies . Who to Call and When: Medical Emergencies: If at any time you feel your situation is an emergency, please call 911 immediately. . Non-Emergent Contact Non-Emergency issues call your: Primary Care Provider . . "Provider Documentation" section prepared by Dana Bland. VTE Core Measure Inpt VTE Proph given/why not?: Enoxaparin (Lovenox)SQ
== END 2016-08-21 17:13 | disposition home or self-care (01) ==
LOC: ENRESERVDT → CANRESERV → ENRESERVTM → C.EDB 10:41 → C.2T 16:46
PROVIDERS: ADMIT Internal Medicine; ATTEND Internal Medicine
DX: R07.9 Chest pain, unspecified (principal); R06.02 Shortness of breath; M25.512 Pain in left shoulder; I10 Essential (primary) hypertension; F32.9 Major depressive disorder, single episode, unspecified; E78.5 Hyperlipidemia, unspecified; E66.9 Obesity, unspecified; J44.9 Chronic obstructive pulmonary disease, unspecified; M71.20 Synovial cyst of popliteal space [Baker], unspecified knee; Z87.891 Personal history of nicotine dependence; Z88.0 Allergy status to penicillin; Z91.040 Latex allergy status; Z82.3 Family history of stroke; Z84.1 Family history of disorders of kidney and ureter

== ENCOUNTER → 2017-06-29 | Outpatient (CLI) | payer OTHER ==
[~2017-06-29] MED LIST changes: -ASPI81TA25 PO; -ATOR-22 PO; +CZR50 PO; -DOXY1TAB6 PO; -LORA-741 PO; -LOSA50TA54 PO; -METO25TA3 PO
--- NOTE | 2017-06-30 05:24 | SPLIT NIGHT TECHNICIAN REPORT ---
[facility] Split Night Polysomnogram - Medical Education Manager Report Study date: 06/29/2017 Referring Physician: Dr. Hess Name: MAN SHULTZ Medical Education Manager: THOM Varghese. Date of : 1950 Height: 66 years, Height 6' 3" Sex: Male Weight: 300 lbs Age: 66 Neck Circum: 18.75 INCHES BMI: Medications: 37.49 LEXAPRO 10 MG, COZAAR 50 MG, NYSTATIN Patient History PATIENT HAS HISTORY OF HYPERTENSION, SNORING, BRADYCARDIA, FATIGUE AND DAYTIME SLEEPINESS. HE IS HERE TODAY FOR AN EVALUATION FOR CODY. ESS = 5 RM 5 Parameters Monitored NPSG: E1-M2, E2-M1, Fp1-M2, Fp2-M1, F3-M2, F4-M2, F4-M1, C3-M2, C4-M2, C4-M1, O1-M2, O2-M2, O2-M1, T3-M2, T4-M1, P3-M2, P4-M1, CHIN1, CHIN2, HR, EKG, Legs, PFLOW, SNOR, FLOW, CFLOW, Tidal Volume, THOR, ABDO, SpO2, PLTH, CPRESS, ETCO2 Wave, ETCO2, pH SLEEP SUMMARY DATA DIAGNOSTIC TREATMENT Lights Out: 8:45:48 PM 12:17:18 AM Lights On: 12:03:48 AM 4:54:18 AM Total Recording Time (TRT): 198.5 min. 277.5 min. Total Sleep Time (TST): 123.0 min. 227.5 min. NREM Time: 123.0 min. 157.5 min. REM Time: 0.0 min. 70.0 min. Sleep Period Time (SPT): 156.0 min. 242.0 min. Sleep Efficiency (SE): 62 % 82 % Sleep Latency: 42.0 min. 23.5 min. Arousal Index: 64.9 10.3 PAP Treatment Levels: 4, 5, 6, 7, 8 * Optimal Pressure(s) SLEEP STAGING DATA DIAGNOSTIC TREATMENT Duration (min) TST % Duration (min) TST % Stage Wake: 75.0 min. -- 50.0 min. -- WASO: 33.0 min. -- 14.5 min. -- NREM: 123.0 min. 100 % 157.5 min. 69 % Stage N1: 15.5 min. 13 % 14.5 min. 6 % Stage N2: 107.5 min. 87 % 120.5 min. 53 % Stage N3: 0.0 min. 0 % 22.5 min. 10 % REM: 0.0 min. 0 % 70.0 min. 31 % POSITIONAL DATA Event Count Index Event Count Index Supine: 28 65.0 N/A N/A Supine NREM: 28 65.0 N/A N/A Supine REM: N/A N/A N/A N/A Non-Supine: 122 73.9 13 2.1 Non-Supine NREM: 122 73.9 13 3.0 Non-Supine REM: N/A N/A 0 0.0 AROUSAL SUMMARY DATA: Event Count Index Event Count Index Apnea Arousals: 91 63.4 2 1.1 Hypopnea Arousals: 10 4.9 0 0.0 Snore Arousals: 14 6.8 8 2.1 PLM Arousals: 5 2.4 2 0.5 Non-Specific Arousals: 11 5.4 14 3.7 Total Arousals: 133 64.9 39 10.3 MYOCLONUS (PLM) Event Count Index Event Count Index PLM: 50 24.4 42 11.1 PLM AROUSAL: 5 2.4 2 0.5 PLM W/O AROUSAL 50 24.4 40 10.5 PLM W/RESP EVENT 20 0.0 1 0.0 MYOCLONUS (PLM) Event Count Index Event Count Index LM: 3 47.3 59 15.6 LM AROUSAL: 3 1.5 9 2.4 LM W/O AROUSAL LM W/RESP EVENT LM NON SPECIFIC 71 34.6 88 23.2 HEART RATE DATA DIAGNOSTIC TREATMENT Sleep (bpm): 52 57 REM (bpm): N/A 89 NREM (bpm): 90 89 Tachycardia Count: 0 0 Tachycardia Duration: 0.00 0 Bradycardia Count: 0 0 Bradycardia Duration: 0.00 0 DIAGNOSTIC PORTION TREATMENT PORTION RESPIRATORY DATA Event Count Index Event Count Index AHI: -- 72.2 -- 2.1 RDI: -- 73.2 -- 3 Obstructive Apnea: 130 63.4 4 1.1 Central Apnea: 0 0.0 0 0.0 Mixed Apnea: 0 0.0 0 0.0 Hypopnea: 18 8.8 4 1.1 RERA: 2 1.0 5 1.3 Total Apneas: 130 63.4 4 1.1 RESPIRATORY DATA REM NREM SLEEP REM NREM SLEEP Supine Position: Obstructive Apneas: N/A 16 16 N/A N/A N/A Central Apneas: N/A 0 0 N/A N/A N/A Mixed Apneas: N/A 0 0 N/A N/A N/A Hypopneas: N/A 10 10 N/A N/A N/A RERA N/A 2 2 N/A N/A N/A Total Supine Events: N/A 28 28 N/A N/A N/A Supine AHI: N/A 65.0 65.0 N/A N/A N/A Supine RDI: N/A 70.0 70.0 N/A N/A N/A REM NREM SLEEP REM NREM SLEEP Non-Supine Position: Obstructive Apneas: N/A 114 114 0 4 4 Central Apneas: N/A 0 0 0 0 0 Mixed Apneas: N/A 0 0 0 0 0 Hypopneas: N/A 8 8 0 4 4 RERA N/A 0 0 0 5 5 Total Supine Events: N/A 122 122 0 13 13 Supine AHI: N/A 73.9 73.9 0.0 3.0 2.1 Supine RDI: N/A 73.9 73.9 0.0 5.0 3.4 OXYGEN DESTAURATION DATA: Event Count Index Event Count Index REM Desaturations: N/A N/A 0 0.0 NREM Desaturations: 145 70.7 6 2.3 SNORE DATA DIAGNOSTIC TREATMENT Snore Time: 19.2 12:40:48 AM Snore TST%: 7 13 Snore Arousal Count: 14 8 Snore Arousal Index: 6.8 2.1 Desaturation Event Summary: Minimum %SpO2 Event Count Mean/Min/Max Duration(sec.) Desaturation Index % Time In Bed > 90 165 27.0 / 4.0 / 57.5 54.7 39.3 86 - 90 27 23.9 / 5.8 / 57.8 6.1 57.6 81 - 85 2 5.3 / 4.0 / 6.5 8.5 3.1 76 - 80 0 N/A 0.0 0.0 71 - 75 0 N/A 0.0 0.0 66 - 70 0 N/A 0.0 0.0 61 - 65 0 N/A 0.0 0.0 56 - 60 0 N/A 0.0 0.0 51 - 55 0 N/A 0.0 0.0 < 50 0 N/A 0.0 0.0 OXYGEN SATURATION DATA DIAGNOSTIC TREATMENT SpO2 Mean Sleep: 90 % 89 % SpO2 Mean REM: N/A % 89 % SpO2 Mean NREM: 90 % 89 % SpO2 Minimum Sleep: 79 % 85 % SpO2 Minimum REM: N/A % 85 % SpO2 Minimum NREM: 79 % 85 % Time Below 90% (TST): 44.3 133.7 Time Below 88% (TST): 24.3 61.2 Total REM NREM Awake <50% 0.0 min. 0.0 min. 0.0 min. 0.0 min. 51 - 60% 0.0 min. 0.0 min. 0.0 min. 0.0 min. 61 - 70% 0.0 min. 0.0 min. 0.0 min. 0.0 min. 71 - 80% 0.2 min. 0.0 min. 0.1 min. 0.1 min. 81 - 90% 279.8 min. 44.6 min. 183.5 min. 51.8 min. 91 - 100% 181.0 min. 23.2 min. 93.0 min. 64.7 min. Average 90 89 89 91 Minimum SpO2 74 85 79 74 Desaturation Event Index 22.0 0.0 32.3 12.0 # Desat. Events below 89% 162 N/A 141 21 Time(%) with Saturation below 89% 30.5 4.9 22.7 2.9 Time(min.) with Saturation below 89% 140.7 22.7 104.4 13.5 Recording Medical Education Manager Comments: Mr. Shultz slept in the right, left and supine positions. PVC's noted. Leg movements noted. No bruxism noted. Snoring was noted and scored as a 4 on a scale of 1 through 5. (0=no snoring, 5=snoring loud enough to be heard through a closed door or down the [address]) At 12:03 AM, Mr. Shultz has met specific Split-Night criteria during the diagnostic portion of this study. CPAP was initiated at +4 CMH2O and up-titrated to an optimal level of +8 CMH2O, which nearly eliminated all respiratory events and snoring. A Resmed Mirage Quattro full face size large mask was used during titration Mr. Shultz awoke to use the restroom 1 time during the night. Mr. Shultz stated I slept as well as I do when I am in my own bed. 1l/min of supplemental oxygen was added around 4:03 AM due to being under 89% for at least 5 minutes at an optimal pressure for 2 hours. The final report will be interpreted and signed by a sleep physician. The completed physician report will then be placed in the patient medical record. Therapy Event: Therapy (cm H20) 0 4 5 6 7 8 Total Time at Pressure (min.) 198.0 34.8 13.2 48.9 130.9 49.2 TST at Pressure (min.) 123.0 7.3 13.2 46.9 125.4 34.7 # Periods 1 1 1 1 1 1 Sleep Onset (min.) 42.0 23.5 0.0 0.0 0.0 0.0 REM Onset (min.) N/A N/A N/A N/A 2.6 17.2 Sleep Efficiency % 62 20 100 95 95 70 Wakefulness (%) 37.9 79.1 0.0 4.1 4.2 29.5 Wakefulness (min.) 75.0 27.5 0.0 2.0 5.5 14.5 NREM 1 (%) 7.8 20.1 0.0 6.1 2.3 3.0 NREM 1 (min.) 15.5 7.0 0.0 3.0 3.0 1.5 NREM 2 (%) 54.3 0.8 100.0 65.2 47.7 25.9 NREM 2 (min.) 107.5 0.3 13.2 31.9 62.4 12.7 NREM 3 (%) 0.0 0.0 0.0 24.6 8.0 0.0 NREM 3 (min.) 0.0 0.0 0.0 12.0 10.5 0.0 REM (%) 0.0 0.0 0.0 0.0 37.8 41.6 REM (min.) 0.0 0.0 0.0 0.0 49.5 20.5 # Arousals 133 10 3 14 8 4 Arousal Index 64.9 82.4 13.6 17.9 3.8 6.9 # Snore 635 10 170 600 224 31 Snore Index 309.8 82.4 771.6 767.9 107.2 53.6 AHI 72.2 49.4 0.0 1.3 0.5 0.0 AHI Supine 65.0 N/A N/A N/A N/A N/A AHI Non-Supine 73.9 49.4 0.0 1.3 0.5 0.0 NREM AHI 72.2 49.4 0.0 1.3 0.8 0.0 REM AHI N/A N/A N/A N/A 0.0 0.0 RDI 73.2 57.7 0.0 6.4 0.5 0.0 # Obstructive 130 4 0 0 0 0 # Central Ap 0 0 0 0 0 0 # Mixed 0 0 0 0 0 0 # Hypopneas 18 2 0 1 1 0 RERAS 2 1 0 4 0 0 Total Respiratory Events 150 7 0 5 1 0 Time Below SpO2 89.00% (min.) 34.6 4.2 13.0 42.8 32.6 0.0 Mean NREM SpO2 (%) 90 89 86 87 90 91 Mean REM SpO2 (%) N/A N/A N/A N/A 89 92 Mean Sleep SpO2 (%) 90 89 86 87 89 92 Min NREM SpO2 (%) 79 85 85 86 87 90 Min REM SpO2 (%) N/A N/A N/A N/A 85 91 Position Supine (min.) 24.0 0.0 0.0 0.0 0.0 0.0 Position Non-supine (min.) 99.0 7.3 13.2 46.9 125.4 34.7 LM Index Sleep 71.7 65.9 9.1 16.6 27.8 34.5 LM Index NREM 71.7 65.9 9.1 16.6 7.9 21.1 LM Index REM N/A N/A N/A N/A 58.2 43.9 Mean Heart Rate (bpm) 52 53 55 56 57 58 Min Heart Rate (bpm) 46 52 53 31 51 52
--- NOTE | 2017-06-30 16:21 | POLYSOMNOGRAPH REPORT ---
CLINICAL DATA: A 66-year-old male with BMI of 34.5, referred by Dr. Hess for snoring, hypertension, bradycardia, fatigue, and daytime sleepiness. His [place] Sleepiness Score is 5/24. This was a split night study. SLEEP ARCHITECTURE: For the diagnostic portion of the study, sleep period time was 156 minutes. Total sleep time was 123 minutes, all non-REM sleep. Sleep latency was delayed at 42 minutes. Arousal index was 65. Sleep efficiency was 62%. Sleep consisted of stage N1 13% and stage N2 87%. For the treatment portion of the study, sleep period was 242 minutes. Total sleep time was 227.5 minutes divided between 157.5 minutes of non-REM sleep and 70 minutes of REM sleep. Sleep latency was 23.5 minutes. Sleep efficiency was 82%. Arousal index was 10.3. Sleep consisted of stage N1 6%, stage N2 53%, stage N3 10%, and REM 31%. AROUSAL DATA: Prior to treatment, 133 arousals were recorded for an index of 64.9 per hour. During treatment, 39 arousals were recorded for an index of 10.3 per hour. PERIODIC LIMB MOVEMENTS DATA: Prior to treatment, 71 limb movements during sleep were noted for an index of 34.6 per hour. During treatment, 88 limb movements during sleep were noted for an index of 22.2 per hour. EKG: Heart rates ranged from 52-90 beats per minute. PVCs were noted. RESPIRATORY DATA: Severe sleep apnea was diagnosed prior to treatment. The diagnostic AHI was 72.2. There were 130 obstructive apneic episodes and 18 hypopneic episodes prior to treatment. Average AHI with treatment was 2.1. There were 4 obstructive apneic episodes and 4 hypopneic episodes. OXIMETRY DATA: Nocturnal hypoxemia was seen prior to treatment. Oxygen taj was 79% prior to treatment. Mean saturation for the treatment was 89%. SENIOR ATTORNEY'S COMMENTS AND TREATMENT SUMMARY: The patient slept in the right, left, and supine positions. Snoring was severe, rated 4 on a scale of 1-5. At 12:03 a.m., the patient met split night criteria. A ResMed Mirage Quattro full face size large mask was used. The patient was titrated up to his final pressure setting of 8 cm of water pressure. At his final pressure setting, the patient slept for 35 minutes with an AHI of 0. At 4:03 a.m. due to hypoxemia, 1 liter per minute of oxygen was utilized since the patient had an optimal AHI with persistent hypoxemia. IMPRESSION: Very severe sleep apnea/hypopnea with the diagnostic 72.2 with nocturnal hypoxemia improved with CPAP 8 cm of water pressure, 1 liter per minute of oxygen using a ResMed Mirage Quattro full face mask, size large. RECOMMENDATIONS: The patient should be started on the above noted treatment regimen and seen back in followup within 90 days to document efficacy and compliance. OSEID
== END | disposition home or self-care (01) ==
LOC: C.NEUR 20:00
PROVIDERS: ATTEND Nurse Practitioner Family
DX: G47.33 Obstructive sleep apnea (adult) (pediatric) (principal); R09.02 Hypoxemia